=== PATIENT | female | born 1990 | race Caucasian/White ===

== ENCOUNTER → 2017-10-04 | Outpatient (CLI) | payer OTHER | END | disposition home or self-care (01) | LOC: US 11:11 | PROC: BT43ZZZ Ultrasonography of Bilateral Kidneys (ICD-10-PCS; principal; 2017-10-04) | DX: S83.512A Sprain of anterior cruciate ligament of left knee, initial encounter (principal); X58.XXXA Exposure to other specified factors, initial encounter; Y92.9 Unspecified place or not applicable ==